=== PATIENT | female | born 1945 | race African-American/Black ===

== ENCOUNTER 2023-02-15 12:03 | Emergency (ER) | payer MEDICARE, MEDICAID ==
[~2023-02-15] VITALS: Ht 162.6 cm; Wt 91.0 kg
[2023-02-15 12:09] VITALS: BP 144/98; PULSE 60; RESP 8; TEMP 97.6; O2SAT 89
== END 2023-02-15 12:11 ==
LOC: ER 12:03
DX: I46.9 Cardiac arrest, cause unspecified (principal); I10 Essential (primary) hypertension
CPT/HCPCS: 31500; 92950; 99285